=== PATIENT | male | born 2000 | race Caucasian/White ===

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

== ENCOUNTER → 2019-12-14 15:36 | Outpatient (CLI) | payer OTHER, SELFPAY ==
[2019-12-14 18:18] LABS: Absolute Lymphocyte Count 1.91 X10^3/uL (0.83-4.51); Absolute Neutrophil Count 2.2 X10^3/uL (2.0-7.7); Basophil# 0.08 X10^3/uL; Basophil% 1.5 % (0-1); Eosinophil# 0.43 X10^3/uL; Eosinophils% 8.3 % (0-5); Hematocrit 46.5 % (40-54); Hemoglobin 15.3 g/dL (13.0-16.5); Lymphocyte # 1.91 X10^3/ul (4.0); Lymphocyte % 36.7 % (19-41); Mean Corp Hgb Conc 32.9 g/dL (32-36); Mean Corpuscular Hgb 28.5 pg (27.0-32.0); Mean Corpuscular Volume 86.8 fL (80-94); Mean Platelet Vol. 10.9 fl (6.2-12.0); Monocyte# 0.57 X10^3/uL; NRBC Flagged by Analyzer 0 % (0-5); Neutrophil % 42.3 % (47-70); Platelet Count 259 K/mm3 (150-450); RBC Distribution Width CV 12.6 % (11.6-14.6); RBC Distribution Width SD 39.7 fl (35.1-43.9); Red Blood Count 5.36 M/mm3 (4.6-6.2); White Blood Count 5.2 K/mm3 (4.4-11.0)
[2019-12-14 18:43] LABS: ALB/GLOB Ratio 1.3 RATIO (0.9-2.4); AST(SGOT) 14 U/L (15-37); Alanine Aminotransfer ALT/SGPT 26 U/L (16-61); Albumin, Serum 4.3 g/dL (3.2-5.0); Alkaline Phosphatase 49 U/L (45-117); Anion Gap 2 (5-15); BUN 10 mg/dL (7-18); Calcium,Total 9.2 mg/dL (8.5-10.1); Chloride 104 mmol/L (98-107); Cholesterol 124 mg/dL (200); Creatinine, Serum 0.91 mg/dL (0.70-1.30); EST Glomerular Filtration Rate 113 mL/min (>60); Est Glom Filt Rate - Afr Amer 136 mL/min (>60); Globulin 3.3 g/dL (2.2-4.2); Glucose 89 mg/dL (74-106); High Density Lipoprotein 48 mg/dL; Potassium 3.6 mmol/L (3.5-5.1); Protein, Total 7.6 g/dL (6.4-8.2); Sodium Level 138 mmol/L (136-145); Triglycerides 58 mg/dL; Very Low Density Lipoprotein 12 mg/dL (5-40)
== END ==
PROVIDERS: PCP Family Medicine; Visit Provider Family Medicine
DX: Z00.00 Encounter for general adult medical examination without abnormal findings (principal); Z51.81 Encounter for therapeutic drug level monitoring
CPT/HCPCS: 36415; 80053; 80061; 85025; 86900; 86901

== ENCOUNTER 2020-04-29 18:38 | Emergency (ER) | payer OTHER, SELFPAY ==
[2020-04-29 18:39] VITALS: BP 135/104; PULSE 89; RESP 18; TEMP 36.6; O2SAT 98; BMI 23.6
--- NOTE | 2020-04-29 19:10 | ED.DCSUM_ITS ---
History of Present Illness Chief Complaint: Laceration Informant: Patient Onset: Today Current Severity: Mild Maximum Severity: Mild Narrative: Patient presents with a laceration to the right index finger. He was at work cleaning something when he sliced his right finger. Tetanus update was 6 years ago. He is right-hand dominant. Past Medical History - Allergies and Home Meds Allergies/Adverse Reactions: Allergies shellfish derived Allergy (Verified 04/29/20 18:41) Anaphylaxis Primary Care Physician: Isiah Mantilla DO [Primary Care Provider] - Past Medical History: None Smoking Status: Never smoker Review of Systems General: Denies: Chills, Fever Eyes: Denies: Visual changes - bilaterally ENT: Denies: Bilateral ear pain Cardiovascular: Denies: Chest pain Respiratory: Denies: Dyspnea, Cough Gastrointestinal: Denies: Abdominal pain Musculoskeletal: Reports: Extremity Pain Skin: Reports: Wounds Neurological: Denies: Weakness, Parasthesia Hematologic: Denies: Easy bruising, Easy bleeding Allergy: Denies: Uticaria Physical Exam Vital Signs/Narrative: Vital Signs Temp Pulse Resp BP Pulse Ox 04/29/20 18:39 98 F 89 18 135/104 H 98 Inital Vital Signs reviewed: Yes General: Well nourished, Well developed ENT: Moist mucous membranes Neck: Supple Cardiovascular: Regular rate, Regular rhythm Respiratory: No distress, CTA bilaterally Abdomen: Soft, Nontender Extremities: - - Patient has a 1 cm flap laceration on the ulnar side of the distal right index finger. Leading is well controlled. Neurovascular examination is normal. Neurological: Alert, Oriented x3, Normal Strength, Normal Sensation Psychological: Normal affect Diagnostic/Tx/Re-eval - Medical Decision Making Digital block was performed using 2 cc of 1% lidocaine. Wound is irrigated. Skin is closed with 5 simple interval sutures of 5-0 nylon. Dressing is applied. Patient will follow-up with [facility]. Procedures - Lacerations No standard instances Length: 0.59 in Depth: Skin Number of Sutures/[place]: 5 Suture Information: Simple, 5-0 ED Disposition - Plan for ED Patient: Disposition: Home or Assisted Living Diagnosis: Finger laceration Instructions: ED Laceration Ext Sutr Stap Tape Referrals: [facility] [GROUP OF PHYSICIANS] - 7 Days for suture removal
== END 2020-04-29 20:12 | disposition home or self-care (01) ==
LOC: ED 19:39
PROVIDERS: Emergency Provider Emergency Medicine; PCP Family Medicine
DX: S61.210A Laceration without foreign body of right index finger without damage to nail, initial encounter (principal); W45.8XXA Other foreign body or object entering through skin, initial encounter
CPT/HCPCS: 12001; 99281; 99282

== ENCOUNTER 2023-04-13 16:37 | Emergency (ER) | payer OTHER, SELFPAY ==
[2023-04-13 16:38] VITALS: BP 128/90; PULSE 91; RESP 18; TEMP 37.1; O2SAT 99; BMI 26.1
--- NOTE | 2023-04-13 16:54 | EDS_ITS ---
HPI HPI - GI History of Present Illness Chief Complaint: Abd Pain Narrative Narrative: 23-year-old male presenting with nausea, diarrhea, right shoulder pain. He states he woke up this morning not feeling very well but was able to go to his clinicals. He noted that he started to get a headache and his shoulder started to hurt. He has not vomited today. He states that he did have some abdominal pain which is resolved now the worst of his pain is in his right posterior shoulder. He states it does not hurt to touch it. Its worse when he does use the right arm. It is worse if he lays back on it. He does not have a cough or shortness of breath. No fevers or chills. PFSH PFS Medical History NECK AND BACK PAIN Home Medications bupropion HCl 75 mg tablet 75 mg PO DAILY 04/29/20 [History Last Taken Unknown] finasteride 1 mg tablet 1 mg PO DAILY 04/29/20 [History Last Taken Unknown] sertraline 25 mg tablet 25 mg PO DAILY 04/29/20 [History Last Taken Unknown] metoclopramide HCl 10 mg tablet (Reglan) 10 mg PO Q6H PRN nausea and vomiting #10 tabs 04/13/23 [Rx Last Taken Unknown] Allergy/AdvReac Type Severity Reaction Status Date / Time shellfish derived Allergy Anaphylaxis Verified 04/13/23 16:39 Social History Smoking Status: Current every day smoker tobacco type: cigarettes alcohol intake: current ROS ROS ED Constitutional Constitutional ED: Denies chills or fever(s) ENT ENT ED: Denies rhinorrhea or sore throat Cardiovascular Cardiovascular: Denies palpitations or racing heartbeat Respiratory/Chest Respiratory/Chest: Denies cough or dyspnea Gastrointestinal Gastrointestinal: Reports abdominal pain, diarrhea and nausea; Denies vomiting Genitourinary Genitourinary ED: Denies dysuria or hematuria Musculoskeletal Musculoskeletal: Reports other Details: Right posterior shoulder pain Neurologic Neurologic: Denies headache(s) or paresthesias Psychiatric Psychiatric: Denies anxiety Endocrine Endocrinology: Denies polydipsia or polyphagia EXAM Physical Exam Const Vital Signs: 04/13/23 16:38 04/13/23 20:38 Temperature 98.7 F Temperature Source Temporal Pulse Rate 91 Respiratory Rate 18 18 Blood Pressure 128/90 H Blood Pressure Mean 102 Pulse Ox 99 Oxygen Delivery Method Room Air Room Air MDM MDM MDM Narrative Medical decision making narrative: Patient medicated with Toradol 50 mg IM as well as Zofran p.o. We will obtain 2 views of the chest as well as the right shoulder. Patient had an episode of vomiting after Zofran. After talking to him he states that Zofran has made him vomit in the past. An IV was established at this point and he was given Reglan for nausea and this did help with quite a bit. He he still states he is not having abdominal pain and his shoulder pain is improved. Chest x-ray on my interpretation shows no acute process. No evidence of pneumonia, pneumothorax or other cute findings. Right shoulder x-ray on my interpretation also shows no acute findings. CBC shows a slightly stenosis at 15.7 however patient has been vomiting I think this is likely reactive. Renal function electrolytes within normal limits. Liver function test normal. Urinalysis negative for infection. Patient feeling improved at 9:21 PM I reevaluated him. He requested prescription. Reglan for home because he states Zofran does not help. This is provided. He had his prescription filled here in the emergency room while waiting. Return precautions discussed. Impression: 1. Nausea/vomiting 2. Thoracic strain 3. Abdominal pain-resolved Lab Data Labs: Laboratory Results - last 24 hr 04/13/23 04/13/23 04/13/23 20:37 20:37 21:18 WBC 15.7 H RBC 5.54 Hgb 16.4 Hct 49.1 MCV 88.6 MCH 29.6 MCHC 33.4 RDW Std Deviation 40.5 RDW Coeff of Joe 12.3 Plt Count 250 MPV 9.9 Immature Gran % (Auto) 0.200 Neut % (Auto) 87.5 H Lymph % (Auto) 4.6 L [place] % (Auto) 5.3 Eos % (Auto) 2.0 Baso % (Auto) 0.4 Absolute Neuts (auto) 13.7 H Absolute Lymphs (auto) 0.72 L Nucleated RBC % 0 Sodium 140 Potassium 4.0 Chloride 107 Carbon Dioxide 28.0 Anion Gap 5 BUN 12 Creatinine 0.77 Estim Creat Clear Calc 152.74 Est GFR (MDRD) Af Amer 159 Est GFR (MDRD) Non-Af 132 BUN/Creatinine Ratio 15.6 Glucose 100 Calcium 9.3 Total Bilirubin 0.50 AST 24 ALT 56 Alkaline Phosphatase 50 Total Protein 7.5 Albumin 4.2 Globulin 3.3 Albumin/Globulin Ratio 1.3 Urine Color Yellow Urine Clarity Clear Urine pH 8.0 Ur Specific [place] 1.015 Urine Protein 15 H Urine Glucose (UA) Normal Urine Ketones Negative Urine Occult Blood Negative Urine Nitrite Negative Urine Bilirubin 1 H Urine Urobilinogen 1 H Ur Leukocyte Esterase 25 H Radiography Diagnostic Testing: Clinical Impression(s) from Imaging Studies Chest X-Ray 04/13/23 17:00 IMPRESSION: No radiographic evidence of acute cardiopulmonary disease. Electronically Signed: Manny Villa MD at 17:19 EDT , Shoulder X-Ray 04/13/23 17:00 IMPRESSION: Negative. Electronically Signed: Manny Villa MD at 17:19 EDT , Discharge Plan Triage Chief Complaint: Abd Pain ED Provider: Bro Key Dx/Rx/DC Orders Instructions: ED Vomiting (Adult), ED Chest Wall Strain Prescriptions: New metoclopramide HCl [Reglan] 10 mg tablet 10 mg PO Q6H PRN (Reason: nausea and vomiting) Qty: 10 0RF No Action bupropion HCl 75 MG tablet 75 mg PO DAILY sertraline 25 MG tablet 25 mg PO DAILY finasteride 1 MG tablet 1 mg PO DAILY Primary Care Provider: Isiah Mantilla Referrals: Isiah Mantilla DO [Primary Care Provider] - Disposition Disposition: Home, Self Care
--- NOTE | 2023-04-13 17:00 | RAD_ITS ---
EXAM: XR CHEST, 2 VIEWS CLINICAL INDICATION: chest pain TECHNIQUE: Frontal and lateral views of the chest. COMPARISON: No relevant prior studies available. FINDINGS: LUNGS AND PLEURAL SPACES: Unremarkable. No consolidation or edema. No pneumothorax. No effusion. HEART: Unremarkable. Cardiac silhouette not enlarged. MEDIASTINUM: Central airways and mediastinal contour are unremarkable. BONES/JOINTS: Unremarkable. SOFT TISSUES: Unremarkable. RAD/Chest PA and Lateral IMPRESSION: No radiographic evidence of acute cardiopulmonary disease. Electronically Signed: Manny Villa MD at 17:19 EDT ,
--- NOTE | 2023-04-13 17:00 | RAD_ITS ---
INDICATION: pain EXAMINATION/TECHNIQUE: X-RAY - RIGHT XR Shoulder Views 4 COMPARISON: FINDINGS: SOFT TISSUES: No soft tissue swelling or gas. No radiopaque foreign body. BONES/JOINTS: No acute fracture or subluxation.. Normal alignment. Preservation of the joint space.. No sclerotic or destructive changes observed. RAD/Shoulder min 2 Views IMPRESSION: Negative. Electronically Signed: Manny Villa MD at 17:19 EDT ,
[2023-04-13] MEDS: Ondansetron ODT 4 MG Tablet PO (17:23)
[2023-04-13] MEDS: Ketorolac 15 MG/ML Vial IM (17:23)
[2023-04-13] MEDS: Metoclopramide 10 MG/2 ML Vial IV (20:32)
[2023-04-13 20:38] VITALS: RESP 18
[2023-04-13 20:42] LABS: Absolute Lymphocyte Count 0.72 X10^3/uL (0.83-4.51); Absolute Neutrophil Count 13.7 X10^3/uL (2.0-7.7); Basophil# 0.07 X10^3/uL; Basophil% 0.4 % (0-1); Eosinophil# 0.31 X10^3/uL; Hematocrit 49.1 % (40-54); Hemoglobin 16.4 g/dL (13.0-16.5); Lymphocyte # 0.72 X10^3/ul (0.83-4.51); Lymphocyte % 4.6 % (19-41); Mean Corp Hgb Conc 33.4 g/dL (32-36); Mean Corpuscular Hgb 29.6 pg (27.0-32.0); Mean Corpuscular Volume 88.6 fL (80-94); Mean Platelet Vol. 9.9 fl (6.2-12.0); Monocyte# 0.83 X10^3/uL; Monocyte% 5.3 % (0-10); NRBC Flagged by Analyzer 0 % (0-5); Neutrophil # 13.69 X10^3/uL (2.7-7.7); Neutrophil % 87.5 % (47-70); Platelet Count 250 K/mm3 (150-450); RBC Distribution Width CV 12.3 % (11.6-14.6); RBC Distribution Width SD 40.5 fl (35.1-43.9); Red Blood Count 5.54 M/mm3 (4.6-6.2); White Blood Count 15.7 K/mm3 (4.4-11.0)
[2023-04-13 21:06] LABS: ALB/GLOB Ratio 1.3 RATIO (0.9-2.4); AST(SGOT) 24 U/L (15-37); Alanine Aminotransfer ALT/SGPT 56 U/L (16-61); Albumin, Serum 4.2 g/dL (3.2-5.0); Alkaline Phosphatase 50 U/L (45-117); Anion Gap 5 (5-15); BUN 12 mg/dL (7-18); BUN/Creat Ratio 15.6 RATIO (10-20); Calcium,Total 9.3 mg/dL (8.5-10.1); Chloride 107 mmol/L (98-107); Creatinine, Serum 0.77 mg/dL (0.70-1.30); EST Glomerular Filtration Rate 132 mL/min (>60); Est Glom Filt Rate - Afr Amer 159 mL/min (>60); Estimated Creatinine Clearance 152.74 ml/min; Globulin 3.3 g/dL (2.2-4.2); Glucose 100 mg/dL (74-106); Protein, Total 7.5 g/dL (6.4-8.2); Sodium Level 140 mmol/L (136-145)
[2023-04-13 21:21] LABS: Red Blood Cells-Urine 0 SEEN /hpf (0-5); Squamous Epithelial Cells - UA 0 SEEN /hpf (0-5)
[2023-04-13 21:23] LABS: Color, Urine Yellow (Yellow); Glucose, Dipstick Normal (Normal); Ketone-Dipstick Negative (Negative); Leukocyte Esterase-Dipstick 25 /ul (Negative); Nitrite-Dipstick Negative (Negative); Occult Blood-Urine Negative /ul (Negative); Protein-Dipstick 15 mg/dl (Negative); Specific Gravity, Urine 1.015 (1.002-1.030); Urine Bilirubin Dipstick 1 mg/dL (Negative); Urine Clarity Clear (Clear); Urine Urobilinogen 1 mg/dl (Normal)
[2023-04-13 21:29] LABS: Bacteria RARE /hpf (None Seen); Mucous, Urine 2+ /hpf (<or=2+); White Blood Cells 0-5 SEEN /hpf (0-5)
== END 2023-04-13 22:47 | disposition home or self-care (01) ==
PROVIDERS: Emergency Provider Student in an Organized Health Care Education/Training Program; PCP Family Medicine; Visit Provider Student in an Organized Health Care Education/Training Program
DX: R11.2 Nausea with vomiting, unspecified (principal); S29.019A Strain of muscle and tendon of unspecified wall of thorax, initial encounter; F17.210 Nicotine dependence, cigarettes, uncomplicated; X58.XXXA Exposure to other specified factors, initial encounter
CPT/HCPCS: 71046; 73030; 80053; 81001; 85025; 96372; 96374; 96375; 99282; A4216